=== PATIENT | female | born 1960 | race American Indian/Alaskan Native ===

== ENCOUNTER 2017-03-04 16:38 | Emergency (ER) | payer SELFPAY ==
[2017-03-04 17:33] LABS: Bacteria,Urine 1+ /HPF (Negative); Bilirubin,Urine NEG (Negative); Blood,Urine SM (Negative); Ketones,Urine NEG (Negative); Leukocyte Esterase,Urine NEG (Negative); Mucus,Urine FEW /HPF; Nitrite,Urine NEG (Negative); Protein,Urine <15 mg/dL mg/dL (Negative); RBC,Urine < 1.0 /HPF (0.0-6.0); Urobilinogen,Urine < 2.0 mg/dL (<2.0)
[2017-03-04 21:23] VITALS: BP 155/83
[2017-03-04] MEDS ORDERED: DECADRON PO ONE (21:41)
[2017-03-04] MEDS ORDERED: PERCOCET 5/325 PO ONE (21:41)
--- NOTE | 2017-03-04 21:41 | Emergency Department Report ---
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 PT HAD BACK INJURY YEARS AGO AND HAD BEEN ON MEDICATION INTERMITTENTLY FOR THIS. Injury: Hip: Right Place: home Severity: moderate Severity scale (0 -10): 5 Worsens With: movement Context: other (TWISTED HER BACK) Associated Symptoms: ambulatory Treatments Prior to Arrival: other (NOTHING) - Related Data Home Medications Medication Instructions Recorded Confirmed Last Taken Diltiazem HCl [Diltiazem ER] 240 mg PO QDAY 03/06/15 03/06/15 03/03/15 09:00 Previous Rx's Medication Instructions Recorded Last Taken Type Ketorolac [Toradol] 10 mg PO Q6H PRN #20 tablet 03/06/15 Unknown Rx Dexamethasone [Decadron] 4 mg PO ONCE #7 tablet 03/04/17 Unknown Rx HYDROcodone/APAP 5-325 [[place] 1 each PO Q6HR PRN #30 tablet 03/04/17 Unknown Rx 5-325 mg TAB] Allergies Allergy/AdvReac Type Severity Reaction Status Date / Time aspirin AdvReac ABNORMAL Verified 03/06/15 17:09 [facility] ED Review of Systems ROS: Stated complaint: LOWER BACK PAIN, URNATING BLOOD Other details as noted in HPI Constitutional: denies: chills, fever Eyes: denies: eye pain, eye discharge, vision change ENT: denies: ear pain, throat pain Respiratory: denies: cough, shortness of breath, wheezing Cardiovascular: denies: chest pain, palpitations Endocrine: no symptoms reported Gastrointestinal: denies: abdominal pain, nausea, diarrhea Genitourinary: denies: urgency, dysuria, discharge Musculoskeletal: denies: back pain, joint swelling, arthralgia Skin: denies: rash, lesions Neurological: denies: headache, weakness, paresthesias Psychiatric: denies: anxiety, depression Hematological/Lymphatic: denies: easy bleeding, easy bruising ED Past Medical Hx - Past Medical History Hx Hypertension: Yes Hx Diabetes: Yes Additional medical history: DJD THYROID PROBLEM HIGH CHLESTROL - Surgical History Additional Surgical History: X 2,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 RIGHT KNEE - Social History Smoking Status: Current Every Day Smoker Substance Use Type: None - Medications Home Medications: Home Medications Medication Instructions Recorded Confirmed Last Taken Type Diltiazem HCl [Diltiazem ER] 240 mg PO QDAY 03/06/15 03/06/15 03/03/15 09:00 History Ketorolac [Toradol] 10 mg PO Q6H PRN #20 tablet 03/06/15 Unknown Rx Dexamethasone [Decadron] 4 mg PO ONCE #7 tablet 03/04/17 Unknown Rx HYDROcodone/APAP 5-325 [[place] 1 each PO Q6HR PRN #30 tablet 03/04/17 Unknown Rx 5-325 mg TAB] ED Physical Exam - General Limitations: No Limitations General appearance: alert, in no apparent distress - Head Head exam: Present: atraumatic, normocephalic - Eye Eye exam: Present: normal appearance, EOMI. Absent: scleral icterus, conjunctival injection - ENT ENT exam: Present: mucous membranes moist - Neck Neck exam: Present: normal inspection, full ROM. Absent: meningismus - Respiratory Respiratory exam: Present: normal lung sounds bilaterally. Absent: respiratory distress - Cardiovascular Cardiovascular Exam: Present: regular rate, normal rhythm, normal heart sounds. Absent: systolic murmur, diastolic murmur, rubs, gallop - GI/Abdominal GI/Abdominal exam: Present: soft, normal bowel sounds - Extremities Exam Extremities exam: Present: normal inspection, tenderness (LATERAL TO PATELLA OVER PERONEAL NERVE) - Back Exam Back exam: Present: normal inspection, full ROM, tenderness (IN RIGHT SI JOINT) - Neurological Exam Neurological exam: Present: alert, oriented X3 - Psychiatric Psychiatric exam: Present: normal affect, normal mood - Skin Skin exam: Present: warm, dry, intact, normal color. Absent: rash ED Course Vital Signs 03/04/17 03/04/17 16:44 21:22 Temperature 97.9 F 98.6 F Pulse Rate 94 H 72 Respiratory 18 Rate Blood Pressure 169/90 Blood Pressure 155/83 [Right] O2 Sat by Pulse 98 98 Oximetry Critical care attestation.: If time is entered above; I have spent that time in minutes in the direct care of this critically ill patient, excluding procedure time. ED Disposition Clinical Impression: Sciatica associated with disorder of lumbosacral spine Disposition: DC-01 TO HOME OR SELFCARE Is pt being admited?: No Does the pt Need Aspirin: No Condition: Stable Instructions: Sciatica (ED), Lumbar Radiculopathy (ED), Low Back Strain (ED) Additional Instructions: PLSE USE A HEATING PAD TOLERATED TO YOUR RIGHT LOWR BACK.PRACTICE BENDING PROPERLY. YOU CAN TAKE MOTRIN NEEDED Prescriptions: Dexamethasone [Decadron] 4 mg PO ONCE #7 tablet HYDROcodone/APAP 5-325 [[place] 5-325 mg TAB] 1 each PO Q6HR PRN #30 tablet PRN Reason: Pain Referrals: PRIMARY CARE,MD [Primary Care Provider] - 3-5 Days
== END 2017-03-04 22:42 | disposition home or self-care (01) ==
LOC: ED 16:38
DX: G54.4 Lumbosacral root disorders, not elsewhere classified (principal); I10 Essential (primary) hypertension; E11.9 Type 2 diabetes mellitus without complications; F17.210 Nicotine dependence, cigarettes, uncomplicated; Z88.6 Allergy status to analgesic agent
CPT/HCPCS: 81001; 99283; J8540

== ENCOUNTER 2017-03-31 12:13 | Emergency (ER) | payer SELFPAY ==
--- NOTE | 2017-03-31 13:58 | Emergency Department Report ---
ED Rash HPI - HPI Chief Complaint: Skin Rash Stated Complaint: RASH ALL OVER Duration: 2 Days Location: Head, Chest, Upper Extremities Suspected Cause: Food (pork) Rash Symptoms: Yes Itching, Yes Facial Swelling, No Tongue/Oral Swelling, No Breathing Difficulties, No Choking Sensation, No Wheezing/Dyspnea, No Peeling, No Blistering, No Fever, No Lightheaded, No Malaise, No Myalgias Severity: moderate Other History: 57 y/o F with a pmhx of HTN, DJD, and questionable DM complains of an allrgic reaction to pork. She states that she has an allergic to pork and ate some pork sauce 2 days ago and then started to break out into a rash that has now spread to her face, B/L arms, and chest. She admits to the rash, itching, and mild headache. She denies any SOB, chest tightness, wheezing, respiratory distress, chest pain, sensation of the throat closing, abdominal pain, or diarrhea. Pt states that she has been trying benadryl with no relief. She denies any use of new soaps, detergents, or deodrants. Currently on metformin, amlodipine, and Hydrocdone/apap as needed. Allergy to aspirin. Denies any chance of . ED Review of Systems ROS: Stated complaint: RASH ALL OVER Other details as noted in HPI Constitutional: denies: chills, fever Eyes: denies: eye pain, eye discharge, vision change ENT: denies: ear pain, throat pain Respiratory: denies: cough, shortness of breath, wheezing Cardiovascular: denies: chest pain, palpitations Gastrointestinal: denies: abdominal pain, nausea, vomiting, diarrhea, constipation Genitourinary: denies: urgency, dysuria, discharge Musculoskeletal: denies: back pain, joint swelling, arthralgia Skin: rash, pruritus Neurological: denies: headache, weakness, paresthesias Psychiatric: denies: anxiety, depression Hematological/Lymphatic: denies: easy bleeding, easy bruising ED Past Medical Hx - Past Medical History Previous Medical History?: Yes Hx Hypertension: Yes Hx Diabetes: Yes Additional medical history: DJD ,THYROID PROBLEM, HIGH CHOLESTEROL - Surgical History Past Surgical History?: Yes Additional Surgical History: X 2,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 RIGHT KNEE - Social History Smoking Status: Unknown if ever smoked - Medications Home Medications: Home Medications Medication Instructions Recorded Confirmed Last Taken Type Diltiazem HCl [Diltiazem ER] 240 mg PO QDAY 03/06/15 03/06/15 03/03/15 09:00 History Ketorolac [Toradol] 10 mg PO Q6H PRN #20 tablet 03/06/15 Unknown Rx Dexamethasone [Decadron] 4 mg PO ONCE #7 tablet 03/04/17 Unknown Rx HYDROcodone/APAP 5-325 [[place] 1 each PO Q6HR PRN #30 tablet 03/04/17 Unknown Rx 5-325 mg TAB] Hydroxyzine HCl 25 mg PO Q8HR PRN #15 tablet 03/31/17 Unknown Rx Rash Exam - Exam General: Vital signs noted. No distress. Alert and acting appropriately. airway was patent there was no periorbital or tongue swelling. There was good air exchange on examination. Pulse ox was 98% and resp rate was WNL. Lungs were CTA. HEENT: Yes Periorbital Edema, No Conjuctival Injection, No Chemosis, No Perioral Edema, No Tongue Edema, No Uvular Edema, No Compromised Airway, No Drooling Lungs: Yes Good Air Exchange, No Wheezes, No Ronchi, No Stridor, No Cough, No Labored Respirations (normal breathing), No Retractions, No Use of Accessory Muscles, No Other Abnormal Lung Sounds Heart: Yes Regular, No Murmur Front/Back of Body, Lg (Color): 1 - maculopapular rash around the eyes with mild swelling 2 - maculopapular rash 3 - maculopapular rash 4 - maculopapular rash Skin: Yes Urticarial Rash, Yes Maculopapular Rash, No Morbilliform rash, No Bulla(e), No Excoriations, No Weeping, No Tenderness, No Erythema, No Edema, No Encrustations Other: Positive: Abdomen Normal, Neurologic Normal, Musculoskeletal Normal ED Course Vital Signs 03/31/17 03/31/17 12:21 13:55 Temperature 98.3 F Pulse Rate 109 H Respiratory 18 20 Rate Blood Pressure 182/88 Blood Pressure 162/88 [Right] O2 Sat by Pulse 97 Oximetry ED Medical Decision Making - Medical Decision Making Case was discussed with Dr. Huber. This appeared to be consistent with an allergic reaction to a known food allergy-pork. There was NO signs of anaphalysis, the airway was patent, RR and pulse ox were WNL. Pt was speaking in full sentences and in no resp compromise. A finger stick was conducted to ensure that glucose levels were controlled prior to Decadron shot--- levels were 99. Pt was given Decadron 10 mg and Pepcid 20 mg here in the ED. She was discharged home with hydroxyzine for the itching. Due to questionable DM i have avoided oral steriods for home at this time. Pt was discharged home with referrals to PCP and principal embedded software engineer. Pt was noted to be talking on the phone throughut her stay in the ED with no resp issues. She was discharged in stable condition, alert and oriented with a tanker truck driver to transport her. Critical care attestation.: If time is entered above; I have spent that time in minutes in the direct care of this critically ill patient, excluding procedure time. ED Disposition Clinical Impression: Allergic reaction Qualifiers: Encounter type: initial encounter Qualified Code(s): T78.40XA - Allergy, unspecified, initial encounter Disposition: TO HOME OR SELFCARE Is pt being admited?: No Does the pt Need Aspirin: No Condition: Stable Instructions: Hydroxyzine Hydrochloride (By mouth), Food Allergy (ED) Additional Instructions: please take the prescribed medication as needed for the itching. Please be advised that this medication can make you drowsy so do not drive or operate heavy machinery. Please follow-up with PCP within 1 week. An principal embedded software engineer referral has been provided to you today. Please return to the ER immediately if your symptoms acute progress or worsen. Prescriptions: Hydroxyzine HCl 25 mg PO Q8HR PRN #15 tablet PRN Reason: Itching Referrals: [facility] [Outside] - 3-5 Days [facility] [Outside] - 3-5 Days DION ALAOM MD [Referring] - 3-5 Days PRIMARY CARE, [Primary Care Provider] - 3-5 Days Forms: Work/School Release Form(ED)
[2017-03-31] MEDS ORDERED: DECADRON IV ONE (14:33)
[2017-03-31] MEDS ORDERED: PEPCID PO ONE (14:33)
[2017-03-31] MEDS ORDERED: DECADRON IM ONE (14:37)
[2017-03-31 14:49] VITALS: BP 138/92
== END 2017-03-31 15:15 | disposition home or self-care (01) ==
LOC: ED 12:13
DX: T78.1XXA Other adverse food reactions, not elsewhere classified, initial encounter (principal); I10 Essential (primary) hypertension; E11.9 Type 2 diabetes mellitus without complications; E78.00 Pure hypercholesterolemia, unspecified; X58.XXXA Exposure to other specified factors, initial encounter
CPT/HCPCS: 82962; 96372; 99283; J1100

== ENCOUNTER 2019-02-17 19:00 | Emergency (ER) | payer SELFPAY ==
--- NOTE | 2019-02-17 20:51 | Event Note ---
ED Screening Note Date of service: 02/17/19 Time: 20:46 ED Screening Note: PT WITH LEFT HAND, FOREARM AND 1ST, 2ND AND 3RD FINGER WITH STIFFNESS AND DIFFICULT TO MOVE, MOVING THUMB AND WRIST IS VERY PAINFUL. DENIES INJURIES. PATIENT IS PREDIABETIC AND ON METFORMIN AND SMOKER. DENIES FEVER. lt 1ST 2ND AND 3RD FINGERS, LT HAND, DISTAL TO PROXIMAL FORARM RED, SWOLLOEN AND TTP. PULSES 2+ This initial assessment/diagnostic orders/clinical plan/treatment(s) is/are subject to change based on patients health status, clinical progression and re- assessment by fellow clinical providers in the ED. Further treatment and workup at subsequent clinical providers discretion. Patient/guardian urged not to elope from the ED as their condition may be serious if not clinically assessed and managed. Initial orders include: XRY/LAB
--- NOTE | 2019-02-17 21:37 | XRay Report ---
LEFT HAND 3 VIEWS INDICATION / CLINICAL INFORMATION: LEFT UPPPER EXT SWELLING/REDNESS/ PAIN. COMPARISON: None available. 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 No fractu re, dislocation or soft tissue swelling is seen. Signer Name: Steve Samuels MD Signed: 02/17/2019 9:33 PM Workstation Name: [id number]
[2019-02-17 22:01] LABS: Basophils % (Auto) 0.5 % (0.0-1.8); Eosinophils # (Auto) 0.1 K/mm3 (0.0-0.4); Eosinophils % (Auto) 0.7 % (0.0-4.3); Hematocrit 38.4 % (30.3-42.9); Lymphocytes # (Auto) 3.8 K/mm3 (1.2-5.4); Mean Corpuscular HGB Conc 34 % (30-34); Mean Corpuscular Volume 92 fl (79-97); Monocytes # (Auto) 0.6 K/mm3 (0.0-0.8); Monocytes % (Auto) 6.2 % (0.0-7.3); Platelet Count 294 K/mm3 (140-440); Red Blood Count 4.18 M/mm3 (3.65-5.03); Red Cell Distribution Width 14.1 % (13.2-15.2)
[2019-02-17 22:23] LABS: Erythrocyte Sedimentation Rate 58 mm/Hr (0-20)
[2019-02-17] MEDS ORDERED: methylPREDNISolone Sod Succinate 125 MG/2 ML INJ IM ONE (22:30)
[2019-02-17] MEDS ORDERED: KETOROLAC 30 MG/1 ML INJ IM ONE (22:30)
[2019-02-17 22:31] LABS: Alanine Aminotransferase 11 units/L (7-56); Albumin 4.3 g/dL (3.9-5); BUN/Creatinine Ratio 15; Blood Urea Nitrogen 9 mg/dL (7-17); Calcium 9.5 mg/dL (8.4-10.2); Hemolysis Index 4
--- NOTE | 2019-02-17 22:36 | Emergency Department Report ---
ED Extremity Problem HPI - General Chief complaint: Extremity Injury, Upper Stated complaint: LFT ARM PAIN/FINGERS SWOLLEN Time Seen by Provider: 02/17/19 20:45 Source: patient Mode of arrival: Ambulatory Limitations: No Limitations - History of Present Illness Initial comments: 59-year-old female presents to ED with left wrist pain last night. Patient states yesterday, she was sitting with her arm resting on the counter, when all of a sudden she felt a sharp, stabbing pain go through her wrist. Patient denies any recent injury, denies insect sting. Patient states she later noticed slight redness on the radial aspect of her wrist. Patient reports continued pain in the wrist, with pain radiating up her arm. She reports slight swelling in the left wrist and hand. States pain is worse in first 3 fingers. Patient denies any history of a carpal tunnel, does not do any typing, does not currently work or put much stress on her wrists. Patient denies fever MD Complaint: extremity pain -: Last night Location: left, upper extremity History of Same: No -: Yes arthralgia Radiation: proximal, distal Quality: aching Consistency: constant Improves with: immobilization Worsens with: palpation Associated Symptoms: denies: fever - Related Data Home Medications Medication Instructions Recorded Confirmed Last Taken Diltiazem HCl [Diltiazem ER] 240 mg PO QDAY 03/06/15 03/06/15 03/03/15 09:00 Previous Rx's Medication Instructions Recorded Last Taken Type Ketorolac [Toradol] 10 mg PO Q6H PRN #20 tablet 03/06/15 Unknown Rx HYDROcodone/APAP 5-325 [[place] 1 each PO Q6HR PRN #30 tablet 03/04/17 Unknown Rx 5-325 mg TAB] dexAMETHasone [Decadron] 4 mg PO ONCE #7 tablet 03/04/17 Unknown Rx hydrOXYzine HCl [Hydroxyzine HCl] 25 mg PO Q8HR PRN #15 tablet 03/31/17 Unknown Rx Naproxen [Naprosyn] 500 mg PO BID #20 tablet 02/17/19 Unknown Rx Sulfamethoxazole/Trimethoprim 1 each PO BID 10 Days #14 tablet 02/17/19 Unknown Rx [Bactrim DS TAB] predniSONE [Deltasone] 50 mg PO QDAY #5 tab 02/17/19 Unknown Rx traMADol [Ultram] 50 mg PO Q6HR PRN #7 tablet 02/17/19 Unknown Rx Allergies Allergy/AdvReac Type Severity Reaction Status Date / Time pork derived (porcine) Allergy Rash Verified 03/31/17 12:21 aspirin AdvReac ABNORMAL Verified 03/06/15 17:09 [facility] ED Review of Systems ROS: Stated complaint: LFT ARM PAIN/FINGERS SWOLLEN Other details as noted in HPI Comment: All other systems reviewed and negative Constitutional: denies: chills, fever Musculoskeletal: as per HPI Skin: denies: rash ED Past Medical Hx - Past Medical History Previous Medical History?: Yes Hx Hypertension: Yes Hx Diabetes: Yes Additional medical history: DJD ,THYROID PROBLEM, HIGH CHOLESTEROL - Surgical History Past Surgical History?: Yes Additional Surgical History: X 2,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 RIGHT KNEE - Social History Smoking Status: Current Every Day Smoker Substance Use Type: None - Medications Home Medications: Home Medications Medication Instructions Recorded Confirmed Last Taken Type Diltiazem HCl [Diltiazem ER] 240 mg PO QDAY 03/06/15 03/06/15 03/03/15 09:00 History Ketorolac [Toradol] 10 mg PO Q6H PRN #20 tablet 03/06/15 Unknown Rx HYDROcodone/APAP 5-325 [[place] 1 each PO Q6HR PRN #30 tablet 03/04/17 Unknown Rx 5-325 mg TAB] dexAMETHasone [Decadron] 4 mg PO ONCE #7 tablet 03/04/17 Unknown Rx hydrOXYzine HCl [Hydroxyzine HCl] 25 mg PO Q8HR PRN #15 tablet 03/31/17 Unknown Rx Naproxen [Naprosyn] 500 mg PO BID #20 tablet 02/17/19 Unknown Rx Sulfamethoxazole/Trimethoprim 1 each PO BID 10 Days #14 tablet 02/17/19 Unknown Rx [Bactrim DS TAB] predniSONE [Deltasone] 50 mg PO QDAY #5 tab 02/17/19 Unknown Rx traMADol [Ultram] 50 mg PO Q6HR PRN #7 tablet 02/17/19 Unknown Rx ED Physical Exam - General Limitations: No Limitations General appearance: alert, in no apparent distress - Head Head exam: Present: atraumatic, normocephalic - Eye Eye exam: Present: normal appearance - ENT ENT exam: Present: mucous membranes moist - Neck Neck exam: Present: normal inspection - Respiratory Respiratory exam: Present: normal lung sounds bilaterally. Absent: respiratory distress - Cardiovascular Cardiovascular Exam: Present: regular rate, normal rhythm - GI/Abdominal GI/Abdominal exam: Absent: distended - Extremities Exam Extremities exam: Present: other (mild swelling to the left hand and wrist with small area of faint erythema over radial aspect of left wrist, no streaking of erythema up the extremity; pain w/ ROM and tenderness to palpation; cap refill nml; sensation intact; radial pulse normal) - Neurological Exam Neurological exam: Present: alert, oriented X3. Absent: motor sensory deficit - Psychiatric Psychiatric exam: Present: normal affect, normal mood - Skin Skin exam: Present: warm, dry, intact, normal color ED Course Vital Signs 02/17/19 02/17/19 02/17/19 20:45 23:11 23:23 Temperature 99.4 F Pulse Rate 75 Respiratory 18 20 20 Rate Blood Pressure 168/80 Blood Pressure [Right] O2 Sat by Pulse 97 Oximetry 02/17/19 23:24 Temperature 99.2 F Pulse Rate 72 Respiratory 20 Rate Blood Pressure Blood Pressure 149/79 [Right] O2 Sat by Pulse 97 Oximetry ED Medical Decision Making - Lab Data Result diagrams: 02/17/19 21:18 02/17/19 21:18 - Radiology Data Radiology results: report reviewed, image reviewed - Medical Decision Making Wrist immobilizer applied. Patient has very small area of erythema, so antibiotics given for possible infectious cause. Her pain could be inflammatory in nature, so Naprosyn and prednisone given. Orthopedic follow-up advised. Return precautions given. - Differential Diagnosis cellulitis, tendonitis, arthritis Critical care attestation.: If time is entered above; I have spent that time in minutes in the direct care of this critically ill patient, excluding procedure time. ED Disposition Clinical Impression: Arthralgia of wrist, left Disposition: DC-01 TO HOME OR SELFCARE Is pt being admited?: No Condition: Stable Instructions: Arthralgia (ED), Tendinitis (ED) Prescriptions: Sulfamethoxazole/Trimethoprim [Bactrim DS TAB] 1 each PO BID 10 Days #14 tablet predniSONE [Deltasone] 50 mg PO QDAY #5 tab Naproxen [Naprosyn] 500 mg PO BID #20 tablet traMADol [Ultram] 50 mg PO Q6HR PRN #7 tablet PRN Reason: Pain [facility] MD PUNEET [Primary Care Provider] - 3-5 Days HAVEN BASILIO MD [Staff Physician] - 3-5 Days PRIMARY CAREMD [Referring] - 3-5 Days Forms: Work/School Release Form(ED) Time of Disposition: 22:40
[2019-02-17 23:25] VITALS: BP 149/79
== END 2019-02-17 23:20 | disposition home or self-care (01) ==
LOC: ED 19:00
DX: M25.532 Pain in left wrist (principal); I10 Essential (primary) hypertension; E11.9 Type 2 diabetes mellitus without complications; E78.00 Pure hypercholesterolemia, unspecified; F17.200 Nicotine dependence, unspecified, uncomplicated; Z98.890 Other specified postprocedural states; Z79.899 Other long term (current) drug therapy; Z88.6 Allergy status to analgesic agent; Z91.018 Allergy to other foods
CPT/HCPCS: 29125; 36415; 73130; 80053; 85025; 85652; 96372; 99284; J1885; J2930